=== PATIENT | female | born 1975 | race Caucasian/White ===

== ENCOUNTER 2016-11-15 23:25 | Emergency (ER) | payer BC ==
[~2016-11-15] VITALS: Ht 167.6 cm; Wt 93.1 kg
[~2016-11-15 23:25] MED LIST: Motrin PO
[2016-11-15 23:39] VITALS: BP 131/95
== END 2016-11-16 02:45 | disposition left against medical advice (07) ==
LOC: EME 23:25
DX: Z53.21 Procedure and treatment not carried out due to patient leaving prior to being seen by health care provider (principal)